=== PATIENT | male | born 1955 | race Hispanic/Latino ===

== ENCOUNTER 2018-05-01 22:42 | Emergency (ER) | payer MEDICARE, OTHER ==
[2018-05-01 22:48] VITALS: BP 138/83; PULSE 113; RESP 16; TEMP 97.6; O2SAT 96
--- NOTE | 2018-05-01 23:47 | ED PDOC ---
HPI: Back Time Seen by Provider: 05/01/18 23:00 Chief Complaint (Nursing): Back Pain Chief Complaint (Provider): Back Pain History Per: Patient History/Exam Limitations: no limitations Onset/Duration Of Symptoms: Days (x2) Previous Symptoms: Chronic Pain (lower back) Additional Complaint(s): 62 y/o male with history of PTSD, chronic lower back pain and right shoulder pain secondary to injury as a [place] (clavicular injury, ligament injury in shoulder) presents to ER for evaluation of worsening lower back pain for the past 2 days. Patient reports taking Advil at home with no improvement. He is visiting family in [place] but is from [place].no numbness weakness or parasthesia in any extremity. no bowel or bladder incontinence. PMD: Dr Prado in [place] Past Medical History Reviewed: Historical Data, Nursing Documentation, Vital Signs Vital Signs: Last Vital Signs Temp 97.6 F 05/01/18 22:46 Pulse 113 H 05/01/18 22:46 Resp 16 05/01/18 22:46 BP 138/83 05/01/18 22:46 Pulse Ox 96 05/01/18 22:46 SANDRA report viewed?: Yes - Medical History PMH: Post Traumatic Stress Disorder, Chronic Pain (Right shoulder pain secondary to injury and back pain) - Surgical History Surgical History: No Surg Hx - Family History Family History: States: Unknown Family Hx - Social History Current smoker - smoking cessation education provided: No Alcohol: None Drugs: Denies - Home Medications Home Medications: Ambulatory Orders Medication Instructions Recorded Ibuprofen [Motrin] 600 mg PO Q6H PRN #20 tab 05/02/18 - Allergies Allergies/Adverse Reactions: Allergies Allergy/AdvReac Type Severity Reaction Status Date / Time No Known Allergies Allergy Verified 05/01/18 22:48 Review of Systems ROS Statement: Except As Marked, All Systems Reviewed And Found Negative Musculoskeletal: Positive for: Back Pain (lower) Physical Exam - Reviewed Nursing Documentation Reviewed: Yes Vital Signs Reviewed: Yes - Physical Exam Appears: Positive for: Non-toxic, No Acute Distress Head Exam: Positive for: ATRAUMATIC, NORMOCEPHALIC Skin: Positive for: Normal Color, Warm, Dry Neck: Positive for: Normal, Painless ROM, Supple Cardiovascular/Chest: Positive for: Regular Rate, Rhythm. Negative for: Murmur Respiratory: Positive for: Normal Breath Sounds. Negative for: Respiratory Distress Gastrointestinal/Abdominal: Positive for: Normal Exam, Soft. Negative for: Tenderness Back: Positive for: Normal Inspection. Negative for: L CVA Tenderness, R CVA Tenderness Extremity: Positive for: Normal ROM. Negative for: Pedal Edema, Deformity Neurologic/Psych: Positive for: Alert, Oriented (x3). Negative for: Motor/Sensory Deficits - ECG O2 Sat by Pulse Oximetry: 96 (RA) Pulse Ox Interpretation: Normal Medical Decision Making Medical Decision Making: Time: 2333 Initial plan: --Toradol 30 mg IV 0044 On reevaluation, patient reports improvement in symptoms. Patient is stable for discharge. Scribe Attestation: Documented by Magda Negron, acting as a scribe for Ross Krause MD. Provider Scribe Attestation: All medical record entries made by the Scribe were at my direction and personally dictated by me. I have reviewed the chart and agree that the record accurately reflects my personal performance of the history, physical exam, medical decision making, and the department course for this patient. I have also personally directed, reviewed, and agree with the discharge instructions and disposition. Disposition - Clinical Impression Clinical Impression: Acute exacerbation of chronic low back pain - Patient ED Disposition Is Patient to be Admitted: No - Disposition Disposition: Routine/Home Disposition Time: 00:44 Condition: IMPROVED Additional Instructions: follow up with your doctor in [place] return to the ED with any worsening or concerning symptoms Prescriptions: Ibuprofen [Motrin] 600 mg PO Q6H PRN #20 tab PRN Reason: Pain, Moderate (4-7) Instructions: Chronic Pain (DC), Low Back Pain (DC) Forms: [employer] ([place])
== END 2018-05-02 00:55 | disposition home or self-care (01) ==
LOC: EDBD → EDUNIT# 22:42 → H.ER 22:42 → MERGE 22:42 → UNMERGE 22:42 → H.ER 05-02 00:55
DX: M54.5 Low back pain (principal); G89.29 Other chronic pain
CPT/HCPCS: 96374; 99284; J1885